=== PATIENT | male | born 1930 | race Caucasian/White ===

== ENCOUNTER 2017-06-24 12:54 | Inpatient (IN) | payer OTHER ==
[~2017-06-24] VITALS: Ht 167.6 cm; Wt 77.7 kg
[~2017-06-24 12:54] MED LIST: ASPEC81 PO; ATEN50TA8 PO; CRD4 PO; MULT-506 PO
[2017-06-24] MEDS ORDERED: SODIUM CHLORIDE 0.9% 1000ML 1,000 ML IV ONE (13:21)
--- NOTE | 2017-06-24 13:24 | EMERGENCY ROOM VISIT NOTE ---
History Report prepared by Ani: Med Sandhu Under the Supervision of: Dr. Eleno Rocha D.O. First contact with patient: 13:01 Chief Complaint: BILATERAL LEG WEAKNESS Stated Complaint: WEAKNESS History of Present Illness The patient is an 86 year old male with a history of hypertension who presents to the Emergency Room via EMS with complaints of worsening leg weakness that started upon waking this morning. He states that he has been coughing for a couple days, and has been hoarse, but when he was getting out of bed this morning, he noticed that his legs are very weak. He notes that his legs have gotten increasingly weaker throughout the day. He notes that he cannot even walk with his cane, which is new. The patient adds that he can lift both his legs off of the bed currently, but he has pain in both his thighs when he does. However, the pain in his thighs is not new. The patient notes that he has had a bit of a fever today. He states that he started having back pain last week. He says that he has not felt like passing out. He denies any chest pain, shortness of breath, nausea, vomiting, or urinary symptoms. He notes that he took his hypertension medication today. He states this his blood pressure usually runs around 160 systolic. He says that he has not been around any known sick contacts recently. He states that he has not been started on any new medications recently. Source of History: patient, spouse/significant other Onset: Upon waking this morning Position: leg (bilateral) Symptom Intensity: cannot even walk with cane Quality: other (weakness) Timing: worsening Associated Symptoms: + fevers, + cough, No chest pain, No SOB, No nausea, No vomiting, No urinary symptoms Review of Systems See HPI for pertinent positives & negatives. A total of 10 systems reviewed and were otherwise negative. Past Medical & Surgical Medical Problems: (1) HTN (hypertension) (2) Hyperlipemia (3) Hypothyroidism (4) Low blood pressure (5) SVT (supraventricular tachycardia) Family History Hypertension Social History Alcohol Use: none Marital Status: Housing Status: lives with family Occupation Status: employed Current/Historical Medications Scheduled Fluticasone Propionate (Nasal) (Flonase Allergy Relief), 2 SPRAYS ANNE-MARIE DAILY Lisinopril (Zestril), 10 MG PO DAILY Multivitamin (Multivitamin), 1 TAB PO DAILY Allergies Coded Allergies: Sulfa Drugs (Verified Allergy, Unknown, 06/24/17) Physical Exam Vital Signs Date Time Temp Pulse Resp B/P (MAP) Pulse Ox O2 Delivery O2 Flow Rate FiO2 06/24/17 16:48 82 16 102/60 94 Room Air 06/24/17 16:34 77 16 98/56 98 06/24/17 15:51 76 06/24/17 15:50 166 06/24/17 15:13 38.1 79 20 136/80 Room Air 06/24/17 14:17 Room Air 06/24/17 14:12 99 96/74 116 99/86 129/94 06/24/17 13:17 99 06/24/17 13:00 37.9 95 18 93/73 95 Room Air Physical Exam GENERAL: Patient is awake, alert, and in no acute distress. Patient is resting comfortably and showing no signs of anxiety EYES: The conjunctivae are clear. The pupils are round and reactive. EARS, NOSE, MOUTH AND THROAT: The nose is without any evidence of any deformity. Mucous membranes are moist tongue is midline NECK: The neck is nontender and supple. RESPIRATORY: Lung sounds were diminished throughout with scattered rhonchi. No tachypnea or conversational dyspnea noted. CARDIOVASCULAR: Regular rate and rhythm noted there no murmurs rubs or gallops normal S1 normal S2 GASTROINTESTINAL: The abdomen is soft. Bowel sounds are present in all quadrants. Abdomen is nontender PELVIS: The Pelvis is stable. No tenderness to palpation is noted. BACK: No midline tenderness or or step-off noted range of motion in flexion extension as well as rotation no signs of muscle spasm noted MUSCULOSKELETAL/EXTREMITIES: There is no evidence of gross deformity full range of motion is noted in the hips and shoulders SKIN: There is trace pedal edema bilaterally. NEUROLOGIC: Patient is awake alert and oriented x3, strength is symmetric. There was no facial droop and patient was able to hold each leg off the bed for greater than 5 seconds. Medical Decision & Procedures ER Provider Diagnostic Interpretation: Radiology results as stated below per my review and radiologist interpretation: CHEST ONE VIEW PORTABLE CLINICAL HISTORY: Sepsis dyspnea COMPARISON STUDY: No previous studies for comparison. FINDINGS: The bones soft tissues and hemidiaphragms are normal. The cardiomediastinal silhouette is normal. The lungs are clear. The pulmonary vasculature is normal. IMPRESSION: Negative chest. The above report was generated using voice recognition software. It may contain grammatical, syntax or spelling errors. Electronically signed by: Nima Pool M.D. 06/24/2017 2:23 PM Dictated Date/Time: 06/24/2017 2:22 PM HEAD WITHOUT CONTRAST (CT) CT DOSE: 614.27 mGy.cm HISTORY: Mental status change weakness TECHNIQUE: Multiaxial CT images of the head were performed without the use of intravenous contrast. A dose lowering technique was utilized adhering to the principles of ALARA. Comparison: 10/21/2010 Findings: The paranasal sinuses and mastoid air cells are clear. Somewhat progressive chronic small vessel change in the periventricular deep white matter regions. No well-defined acute infiltrate. No evidence for acute intracranial hemorrhage. Ventricular system is midline. Impression: 1. No acute intracranial abnormality. 2. Mildly progressive chronic small vessel change compared to the prior study within the periventricular and deep white matter regions. The above report was generated using voice recognition software. It may contain grammatical, syntax or spelling errors. Electronically signed by: Nima Pool M.D. 06/24/2017 3:11 PM Dictated Date/Time: 06/24/2017 3:10 PM Laboratory Results Test 06/24/17 13:43 06/24/17 13:54 06/24/17 14:00 06/24/17 15:20 Immature Granulocyte % (Auto) 0.1 % White Blood Count 7.79 K/uL (4.8-10.8) Red Blood Count 4.52 M/uL (4.7-6.1) Hemoglobin 15.3 g/dL (14.0-18.0) Hematocrit 40.7 % (42-52) Mean Corpuscular Volume 90.0 fL (80-100) Mean Corpuscular Hemoglobin 33.8 pg (25-34) Mean Corpuscular Hemoglobin Concent 37.6 g/dl (32-36) Platelet Count 172 K/uL (130-400) Mean Platelet Volume 9.2 fL (7.4-10.4) Neutrophils (%) (Auto) 79.2 % Lymphocytes (%) (Auto) 10.8 % Monocytes (%) (Auto) 8.6 % Eosinophils (%) (Auto) 0.9 % Basophils (%) (Auto) 0.4 % Neutrophils # (Auto) 6.17 K/uL (1.4-6.5) Lymphocytes # (Auto) 0.84 K/uL (1.2-3.4) Monocytes # (Auto) 0.67 K/uL (0.11-0.59) Eosinophils # (Auto) 0.07 K/uL (0-0.5) Basophils # (Auto) 0.03 K/uL (0-0.2) Immature Granulocyte # (Auto) 0.01 K/uL (0.00-0.02) Erythrocyte Sedimentation Rate 16 mm/hr (0-14) Prothrombin Time 11.5 SECONDS (9.0-12.0) Prothromb Time International Ratio 1.1 (0.9-1.1) Activated Partial Thromboplast Time 28.6 SECONDS (21.0-31.0) Partial Thromboplastin Ratio 1.1 Phosphorus Level 2.6 mg/dl (2.5-4.9) Magnesium Level 1.9 mg/dl (1.8-2.4) Total Bilirubin 0.9 mg/dl (0.2-1) Aspartate Amino Transf (AST/SGOT) 19 U/L (15-37) Alanine Aminotransferase (ALT/SGPT) 29 U/L (12-78) Alkaline Phosphatase 75 U/L (45-117) Total Creatine Kinase 130 U/L (39-308) Creatine Kinase MB 2.3 ng/ml (0.5-3.6) Creatine Kinase MB Ratio 1.8 (0-3.0) C-Reactive Protein 2.84 mg/dl (0-0.29) Total Protein 8.2 gm/dl (6.4-8.2) Albumin 3.8 gm/dl (3.4-5.0) Globulin 4.4 gm/dl (2.5-4.0) Albumin/Globulin Ratio 0.9 (0.9-2) Lipase 111 U/L (73-393) Procalcitonin 0.10 ng/ml (0-0.5) Thyroid Stimulating Hormone (TSH) 2.480 uIu/ml (0.300-4.500) Bedside Lactic Acid Venous 1.68 mmol/L (0.90-1.70) Influenza Type A (RT-PCR) Neg for Influ A (NEG) Influenza Type B (RT-PCR) Neg for Influ B (NEG) Urine Color YELLOW Urine Appearance CLEAR (CLEAR) Urine pH 7.0 (4.5-7.5) Urine Specific [place] 1.018 (1.000-1.030) Urine Protein NEG (NEG) Urine Glucose (UA) NEG (NEG) Urine Ketones NEG (NEG) Urine Occult Blood NEG (NEG) Urine Nitrite NEG (NEG) Urine Bilirubin NEG (NEG) Urine Urobilinogen NEG (NEG) Urine Leukocyte Esterase NEG (NEG) Urine WBC (Auto) 1-5 /hpf (0-5) Urine RBC (Auto) 0-4 /hpf (0-4) Urine Hyaline Casts (Auto) 1-5 /lpf (0-5) Urine Epithelial Cells (Auto) 5-10 /lpf (0-5) Urine Bacteria (Auto) NEG (NEG) Laboratory results per my review. Medications Administered Medications (Trade) Dose Ordered Sig/Cris Route Start Time Stop Time Status Last Admin Dose Admin Sodium Chloride 1,000 ml @ 999 mls/hr Q1H1M ONCE IV 06/24/17 13:21 06/24/17 14:21 DC 06/24/17 14:18 999 MLS/HR Sodium Chloride 1,000 ml @ 80 mls/hr [id number] IV 06/24/17 17:22 06/25/17 05:51 DC 06/24/17 20:05 80 MLS/HR ECG Per My Interpretation Indication: weakness Rate (beats per minute): 95 Rhythm: normal sinus Findings: no ectopy, other (no acute ST segment abnormalities) Change: no significant change (compared to 06/08/07) ED Course 1318: The patient was evaluated in room B6. A complete history and physical examination were performed. 1321: NSS 1000 ml @ 999 mls/hr IV. 1611: I discussed the patient with Dr. Manjinder Augustin cardiology. 1710: Upon reevaluation, the patient is resting. I discussed results and treatment plan with him. He verbalizes agreement and understanding. The patient will be evaluated for further management and care. 1719: I discussed the patient with Dr. Kj Augustin credit clerk. She will evaluate the patient for further treatment. Medical Decision Differential diagnosis: Etiologies such as viral syndrome, otitis, pharyngitis, pneumonia, influenza, meningitis, urinary tract infection, sepsis, bacteremia, as well as others were entertained. Nursing notes reviewed. Additional history is obtained from patient's significant other. The patient is an 86-year-old male who presented to the emergency department for generalized weakness. The patient has had episodes of hypotension recently has been seen by his family doctor for this. They have been trying to adjust his medications but he currently does take some blood pressure medication. The patient also had a low-grade fever. I discussed patient's laboratory and radiographic studies with him. He had one episode of supraventricular tachycardia. I discussed patient's case with the [facility] orthopedic specialist. Because of his ongoing symptoms I was concerned this could be a medication issue. For this reason I discussed this case with the on-call [facility] hospitalist. They have agreed to evaluate the patient in the emergency department for further management and disposition. Medication Reconcilliation Current Medication List: was personally reviewed by me Blood Pressure Screening Patient's blood pressure: Low blood pressure Referred to hospitalist. Consults Time Called: 1608 Consulting Physician: Dr. Manjinder Augustin cardiology Returned Call: 1611 I discussed the patient with Dr. Manjinder Augustin cardiology. Additional Consults: Time Called: 1710 Consulted Physician: Dr. Kj Augustin credit clerk Returned Call: 1719 Additional Comments: I discussed the patient with Dr. Kj Augustin credit clerk. She will evaluate the patient for further treatment. Impression Primary Impression: Weakness Additional Impressions: Hypotension SVT (supraventricular tachycardia) Fever Scribe Attestation The scribe's documentation has been prepared under my direction and personally reviewed by me in its entirety. I confirm that the note above accurately reflects all work, treatment, procedures, and medical decision making performed by me. Departure Information Dispostion Being Evaluated By Hospitalist Referrals No Doctor, Assigned (PCP) Patient Instructions My [facility] Problem Qualifiers Additional Impressions: Hypotension Hypotension type: unspecified hypotension type Qualified Codes: I95.9 - Hypotension, unspecified Fever Fever type: unspecified Qualified Codes: R50.9 - Fever, unspecified
[2017-06-24] MEDS ORDERED: LISI-461 PO (13:37)
[2017-06-24 14:05] LABS: BASO % 0.4 %; BASO ABS # 0.03 K/uL (0-0.2); EOS % 0.9 %; EOS ABS # 0.07 K/uL (0-0.5); HEMATOCRIT 40.7 % (42-52); HEMOGLOBIN 15.3 g/dL (14.0-18.0); IG# 0.01 K/uL (0.00-0.02); LYMPH % 10.8 %; LYMPH ABS # 0.84 K/uL (1.2-3.4); MEAN CORPUSCULAR HEMOGLOBIN 33.8 pg (25-34); MEAN CORPUSCULAR HGB CONC 37.6 g/dl (32-36); MEAN PLATELET VOLUME 9.2 fL (7.4-10.4); MONO % 8.6 %; MONO ABS # 0.67 K/uL (0.11-0.59); NEUT % 79.2 %; NEUT ABS # 6.17 K/uL (1.4-6.5); PLATELET COUNT 172 K/uL (130-400); RED CELL DISTRIBUTION WIDTH CV 13.7 % (11.5-14.5); RED CELL DISTRIBUTION WIDTH SD 44.3 fL (36.4-46.3); WHITE BLOOD COUNT 7.79 K/uL (4.8-10.8)
[2017-06-24 14:11] LABS: INR 1.1 (0.9-1.1); PTT PATIENT 28.6 SECONDS (21.0-31.0)
[2017-06-24 14:20] LABS: ALBUMIN 3.8 gm/dl (3.4-5.0); ALT/SGPT 29 U/L (12-78); AST/SGOT 19 U/L (15-37); BLOOD UREA NITROGEN 23 mg/dl (7-18); CARBON DIOXIDE 25 mmol/L (21-32); CREATININE 1.31 mg/dl (0.60-1.40); GLUCOSE 110 mg/dl (70-99); LIPASE 111 U/L (73-393); POTASSIUM 4.5 mmol/L (3.5-5.1); SODIUM 133 mmol/L (136-145)
[2017-06-24 14:23] LABS: ALKALINE PHOSPHATASE 75 U/L (45-117); CKMB 2.3 ng/ml (0.5-3.6); PHOSPHORUS 2.6 mg/dl (2.5-4.9); TOTAL PROTEIN 8.2 gm/dl (6.4-8.2)
--- NOTE | 2017-06-24 14:24 | DIAGNOSTIC IMAGING REPORT ---
CHEST ONE VIEW PORTABLE CLINICAL HISTORY: Sepsis dyspnea COMPARISON STUDY: No previous studies for comparison. FINDINGS: The bones soft tissues and hemidiaphragms are normal. The cardiomediastinal silhouette is normal. The lungs are clear. The pulmonary vasculature is normal. IMPRESSION: Negative chest. The above report was generated using voice recognition software. It may contain grammatical, syntax or spelling errors. Electronically signed by: Nima Pool M.D. 06/24/2017 2:23 PM Dictated Date/Time: 06/24/2017 2:22 PM
[2017-06-24 15:08] LABS: INFLUENZA A PCR Neg for Influ A (NEG); INFLUENZA B PCR Neg for Influ B (NEG)
--- NOTE | 2017-06-24 15:13 | DIAGNOSTIC IMAGING REPORT ---
HEAD WITHOUT CONTRAST (CT) CT DOSE: 614.27 mGy.cm HISTORY: Mental status change weakness TECHNIQUE: Multiaxial CT images of the head were performed without the use of intravenous contrast. A dose lowering technique was utilized adhering to the principles of ALARA. Comparison: 10/21/2010 Findings: The paranasal sinuses and mastoid air cells are clear. Somewhat progressive chronic small vessel change in the periventricular deep white matter regions. No well-defined acute infiltrate. No evidence for acute intracranial hemorrhage. Ventricular system is midline. Impression: 1. No acute intracranial abnormality. 2. Mildly progressive chronic small vessel change compared to the prior study within the periventricular and deep white matter regions. The above report was generated using voice recognition software. It may contain grammatical, syntax or spelling errors. Electronically signed by: Nima Pool M.D. 06/24/2017 3:11 PM Dictated Date/Time: 06/24/2017 3:10 PM
[2017-06-24] MEDS ORDERED: SODIUM CHLORIDE 0.9% 1000ML 1,000 ML IV SCH (17:22)
[2017-06-24] MEDS ORDERED: NITROGLYCERIN 0.4 MG SL PER TAB CHARGE SL PRN (17:30)
[2017-06-24] MEDS ORDERED: ALUMINUM/MAGNESIUM/SIMETH (MAALOX MAX) 30 ML UDC PO PRN (17:30)
[2017-06-24] MEDS ORDERED: ACETAMINOPHEN 325 MG TAB PO PRN (17:30)
[2017-06-24] MEDS ORDERED: ONDANSETRON INJ 2 MG/ML 2 ML VIAL IV PRN (17:30)
[2017-06-24] MEDS ORDERED: MAGNESIUM HYDROXIDE SUSP 30 ML UDC PO PRN (17:30)
[2017-06-24] MEDS ORDERED: POLYETHYLENE (MIRALAX) 17 GM PACK PO PRN (17:30)
[2017-06-24] MEDS ORDERED: FLUT0.15 NAE (18:34)
[2017-06-24] MEDS ORDERED: IV FLUIDS COMPLETED PRN (20:00)
[2017-06-24] MEDS: HEPARIN SOD 5000 UNIT/0.5 ML CARP SQ SCH (20:07)
[2017-06-24] MEDS ORDERED: OPTIRAY 320 IV PRN (20:15)
--- NOTE | 2017-06-24 20:15 | History and Physical ---
History & Physical Date & Time of Service: June 24, 2017 at 18:42 Chief Complaint: Weakness Primary Care Physician: Omaira Iglesias M.D. History of Present Illness Source: patient, spouse, clinic records, hospital records Pt is 86 y/o M with PMH hypothyroidism, HTN, HLD, OA presented to ER with c/o weakness. Patient states yesterday started with some mild body aches which were increased today. Past 2 days with cough productive of barnard/yellow sputum. Denies SOB/CP. Today has not been eating or drinking well. Reports history of chronic nasal congestion and uses Flonase however feels has had increased postnasal drip past 2 days. Today tactile fevers. Today with generalized weakness and bilateral extremity weakness and unable to stand or walk. Usually walks with the assistance of a cane. 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 His reports that normally has low BPs at home however last PCP visit had elevated blood pressure lisinopril was added 10 days ago. History chronic constipation and uses MiraLAX daily to have daily BMs. Patient states 04/2016 slipped on ice and fell and since that time with intermittent headaches and posterior neck pain. Denies any other recurrent falls. patient denies any dizziness or lightheadedness or syncopal episodes. Denies ill contacts. Denies recent travel, tick bites. Denies N/V, vision changes, CP, SOB, orthopnea, palpitations, sore throat, choking, otalgia, abdominal pain, paresthesias, extremity edema, rashes, urinary symptoms, weight loss. Past Medical/Surgical History Medical Problems: (1) HTN (hypertension) (2) Low blood pressure (3) SVT (supraventricular tachycardia) Family History Hypertension Social History Smoking Status: Former Smoker Smokeless Tobacco Use: No Alcohol Use: none Drug Use: none Marital Status: Housing status: lives with significant other Occupational Status: employed Immunizations History of Influenza Vaccine: Yes History of Tetanus Vaccine?: Unknown History of Pneumococcal: Yes History of Hepatitis B Vaccine: No Allergies Coded Allergies: Sulfa Drugs (Verified Allergy, Unknown, 06/24/17) Home Medications Scheduled Fluticasone Propionate (Nasal) (Flonase Allergy Relief), 2 SPRAYS ANNE-MARIE DAILY Lisinopril (Zestril), 10 MG PO DAILY Multivitamin (Multivitamin), 1 TAB PO DAILY Review of Systems See HPI for pertinent positives & negatives. All other systems reviewed and were otherwise negative Physical Exam Vital Signs Date Time Temp Pulse Resp B/P (MAP) Pulse Ox O2 Delivery O2 Flow Rate FiO2 06/24/17 16:48 82 16 102/60 94 Room Air 06/24/17 16:34 77 16 98/56 98 06/24/17 15:51 76 06/24/17 15:50 166 06/24/17 15:13 38.1 79 20 136/80 Room Air 06/24/17 14:17 Room Air 06/24/17 14:12 99 96/74 116 99/86 129/94 06/24/17 13:17 99 06/24/17 13:00 37.9 95 18 93/73 95 Room Air General Appearance: WD/WN, no apparent distress Head: normocephalic, atraumatic Eyes: normal inspection, PERRL, EOMI, sclerae normal ENT: hearing grossly normal, pharynx normal, + pertinent finding (mucous membranes mildly dry) Neck: supple, no JVD, trachea midline, + pertinent finding (non-tender to palpation ) Respiratory/Chest: lungs clear, normal breath sounds, no respiratory distress Cardiovascular: regular rate, rhythm, normal peripheral pulses Abdomen/GI: normal bowel sounds, non tender, soft Back: no CVA tenderness Extremities/Musculoskelatal: normal inspection, no calf tenderness, normal capillary refill, no pedal edema, non-tender, + pertinent finding (Pt able to flex/extend bilateral hips, knees, ankles without tenderness. distal pulses intact bilaterally, +sensation to light touch intact bilaterally) Neurologic/Psych: alert, normal mood/affect, oriented x 3 Skin: normal color, warm/dry Diagnostics Laboratory Results Results Past 24 Hours Test 06/24/17 13:43 06/24/17 13:54 06/24/17 14:00 06/24/17 15:20 Range/Units White Blood Count 7.79 4.8-10.8 K/uL Red Blood Count 4.52 4.7-6.1 M/uL Hemoglobin 15.3 14.0-18.0 g/dL Hematocrit 40.7 42-52 % Mean Corpuscular Volume 90.0 80-100 fL Mean Corpuscular Hemoglobin 33.8 25-34 pg Mean Corpuscular Hemoglobin Concent 37.6 32-36 g/dl Platelet Count 172 130-400 K/uL Mean Platelet Volume 9.2 7.4-10.4 fL Neutrophils (%) (Auto) 79.2 % Lymphocytes (%) (Auto) 10.8 % Monocytes (%) (Auto) 8.6 % Eosinophils (%) (Auto) 0.9 % Basophils (%) (Auto) 0.4 % Neutrophils # (Auto) 6.17 1.4-6.5 K/uL Lymphocytes # (Auto) 0.84 1.2-3.4 K/uL Monocytes # (Auto) 0.67 0.11-0.59 K/uL Eosinophils # (Auto) 0.07 0-0.5 K/uL Basophils # (Auto) 0.03 0-0.2 K/uL RDW Standard Deviation 44.3 36.4-46.3 fL RDW Coefficient of Variation 13.7 11.5-14.5 % Immature Granulocyte % (Auto) 0.1 % Immature Granulocyte # (Auto) 0.01 0.00-0.02 K/uL Erythrocyte Sedimentation Rate 16 0-14 mm/hr Prothrombin Time 11.5 9.0-12.0 SECONDS Prothromb Time International Ratio 1.1 0.9-1.1 Activated Partial Thromboplast Time 28.6 21.0-31.0 SECONDS Partial Thromboplastin Ratio 1.1 Sodium Level 133 136-145 mmol/L Potassium Level 4.5 3.5-5.1 mmol/L Chloride Level 103 98-107 mmol/L Carbon Dioxide Level 25 21-32 mmol/L Anion Gap 5.0 3-11 mmol/L Blood Urea Nitrogen 23 7-18 mg/dl Creatinine 1.31 0.60-1.40 mg/dl Est Creatinine Clear Calc Drug Dose 41.0 ml/min Estimated GFR () 57.1 Estimated GFR (Non- 49.3 BUN/Creatinine Ratio 17.7 10-20 Random Glucose 110 70-99 mg/dl Calcium Level 9.0 8.5-10.1 mg/dl Phosphorus Level 2.6 2.5-4.9 mg/dl Magnesium Level 1.9 1.8-2.4 mg/dl Total Bilirubin 0.9 0.2-1 mg/dl Aspartate Amino Transf (AST/SGOT) 19 15-37 U/L Alanine Aminotransferase (ALT/SGPT) 29 12-78 U/L Alkaline Phosphatase 75 45-117 U/L Total Creatine Kinase 130 39-308 U/L Creatine Kinase MB 2.3 0.5-3.6 ng/ml Creatine Kinase MB Ratio 1.8 0-3.0 Troponin I < 0.015 0-0.045 ng/ml C-Reactive Protein 2.84 0-0.29 mg/dl Total Protein 8.2 6.4-8.2 gm/dl Albumin 3.8 3.4-5.0 gm/dl Globulin 4.4 2.5-4.0 gm/dl Albumin/Globulin Ratio 0.9 0.9-2 Lipase 111 73-393 U/L Procalcitonin 0.10 0-0.5 ng/ml Bedside Lactic Acid Venous 1.68 0.90-1.70 mmol/L Influenza Type A (RT-PCR) Neg for Influ A NEG Influenza Type B (RT-PCR) Neg for Influ B NEG Urine Color YELLOW Urine Appearance CLEAR CLEAR Urine pH 7.0 4.5-7.5 Urine Specific [place] 1.018 1.000-1.030 Urine Protein NEG NEG Urine Glucose (UA) NEG NEG Urine Ketones NEG NEG Urine Occult Blood NEG NEG Urine Nitrite NEG NEG Urine Bilirubin NEG NEG Urine Urobilinogen NEG NEG Urine Leukocyte Esterase NEG NEG Urine WBC (Auto) 1-5 0-5 /hpf Urine RBC (Auto) 0-4 0-4 /hpf Urine Hyaline Casts (Auto) 1-5 0-5 /lpf Urine Epithelial Cells (Auto) 5-10 0-5 /lpf Urine Bacteria (Auto) NEG NEG Test 06/24/17 18:26 Range/Units Microbiology Results 06/24/17 Blood Culture, Received Pending 06/24/17 Blood Culture, Received Pending Diagnostic Radiology CXR: IMPRESSION: Negative chest. CT HEAD: Impression: 1. No acute intracranial abnormality. EKG EKG read by cardiology Normal sinus rhythm Left axis deviation Inferior infarct , age undetermined Abnormal ECG When compared with ECG of 08-JUN-2007 15:19, Vent. rate has increased BY 35 BPM Inferior infarct is now Present Confirmed by Tony Al ([id number]) on 06/24/2017 2:43:58 PM Impression Assessment and Plan FEVER/COUGH Yesterday started with generalized weakness, myalgias, today with tactile fevers , cough 2 days productive yellow/barnard sputum. Denies SOB/CP. In ER temp of 38.1C, P: 95, R: 18, BP 93/73 up to 136/80. 95% on room air. Negative influenza PCR. No leukocytosis, no leukocytosis, negative UA, POC lactic acid WNL, procalcitonin WNL. ESR: 16, CRP:2.8. Negative troponin. CXR: Negative. In ER patient given 1 mL NSS. DDX: viral respiratory infection -Sputum culture -Pending blood cultures -IVF -CBC, PRP in am -CT chest -holding on antibiotics at this time until result of CT chest EPISODE SVT Pt had episode SVT in ER with pulse up to 166 and pt was febrile at 38.1C at that time. Pt given IVF, no other meds and pulse down to 80's D-dimer: 710. Initial troponin negative -monitor on tele -trend troponin ELEVATED D-DIMER D-dimer: 710 CTA ordered to r/o PE HYPOTENSION/DEHYDRATION BP: 93/73 up to 136/80 after IVF in ER -holding pt's lisinopril GENERALIZED WEAKNESS Generalized weakness, unable to stand or walk today 2/2 increased LE weakness. Probable secondary to above and dehydration -Continue to monitor, fall precautions -holding lisinopril at this time secondary to hypotension/dehydration ACUTE KIDNEY INJURY Cr: 1.3. Baseline 1.0. Probable secondary to dehydration -IVF -Monitor renal functions -Holding lisinopril -Avoid nephrotoxic agents and possible GAIT ABNORMALITY Patient reports history of "shuffled gait" since 1999 when he had bilateral knee replacement. Patient reports had neurology workup in 2008 and did not f/u after that. Usually ambulates with cane. Today unable to stand/walk CT head in ER no acute intracranial abnormality. -PT/OT eval -Neuro consult Reported HTN Pt was placed on lisinopril 10 days ago for elevated BP in PCP's office -holding lisinopril 2/2 hypotension/renal insufficiency HYPOTHYROIDISM Pt not currently on thyroid med TSH Pending DVT Prophylaxis -heparin SQ Disposition admit tele Full Code as per discussion with pt Follows with Dr Iglesias for routine care Pt was seen with Dr Underwood. See addendum ATTENDING ADDENDUM : Patient seen and examined care coordinated with Kalpana Pepe PA-C 86-year-old male with multiple comorbidities presented to ER with weakness fatigue history of multiple falls/generalized deconditioning/ In the ER patient was found to be in SVT CT chest with contrast was negative for any acute PE Given IV fluid for hypotension/dehydration PT OT evaluation requested Please refer to further documentation by Kalpana Pepe PA-C for discussion of other chronic issue Pallavi Underwood MD Resuscitation Status Full Code VTE Prophylaxis Will order VTE Prophylaxis: Yes Additional Copies To Omaira Iglesias M.D.
[2017-06-24 20:29] VITALS: BP 129/74; PULSE 85; TEMP 36.8; O2SAT 95; Ht 167.6 cm; Wt 77.7 kg
--- NOTE | 2017-06-24 20:50 | DIAGNOSTIC IMAGING REPORT ---
CT ANGIOGRAM OF THE CHEST CLINICAL HISTORY: Shortness of breath. Elevated d-dimer. COMPARISON STUDY: Chest x-ray dated 06/24/2017 TECHNIQUE: Following the IV administration of 97 mL of Optiray-320, CT angiogram of the thorax was performed from the thoracic inlet to the lung bases utilizing the pulmonary embolus protocol. Images are reviewed in the axial, sagittal, and coronal planes. IV contrast was administered without complication. MIP imaging was performed. A dose lowering technique was utilized adhering to the principles of ALARA. CT DOSE: 417.39 mGy.cm FINDINGS: No pathologically enlarged axillary mediastinal or hilar lymph nodes were visualized. There is aneurysmal dilatation of the ascending thoracic aorta which measures 47 mm in diameter at the level of the main pulmonary artery There were no pulmonary artery filling defects to indicate acute pulmonary embolism. No pleural effusions are visualized. There was no evidence of focal pulmonary consolidation. There is a 3 mm solid right upper lobe pulmonary nodule. IMPRESSION: 1. No evidence of acute pulmonary embolism 2. No evidence of focal pulmonary consolidation 3. 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 06/24/2017 8:49 PM Dictated Date/Time: 06/24/2017 8:45 PM
--- NOTE | 2017-06-24 21:24 | DIAGNOSTIC IMAGING REPORT ---
ULTRASOUND VENOUS DOPPLER LWR EXT BILA CLINICAL HISTORY: Shortness of breath. Elevated d-dimer COMPARISON STUDY: No previous studies for comparison. FINDINGS: Real-time and color flow Doppler imaging were performed. Flow was seen within the femoral, popliteal and calf veins with no intraluminal thrombus demonstrated. The saphenous vein is patent. IMPRESSION: No evidence of lower extremity DVT. Electronically signed by: Oskar Perkins M.D. 06/24/2017 9:22 PM Dictated Date/Time: 06/24/2017 9:22 PM
[2017-06-25] VITALS: BP 117/71; PULSE 72; TEMP 37.2; O2SAT 95
[2017-06-25 02:42] VITALS: BP 119/65; PULSE 68; TEMP 36.8; O2SAT 94
[2017-06-25 05:28] LABS: HEMATOCRIT 36.4 % (42-52); HEMOGLOBIN 13.2 g/dL (14.0-18.0); MEAN CORPUSCULAR HEMOGLOBIN 32.3 pg (25-34); MEAN CORPUSCULAR HGB CONC 36.3 g/dl (32-36); PLATELET COUNT 148 K/uL (130-400); RED CELL DISTRIBUTION WIDTH CV 13.6 % (11.5-14.5); RED CELL DISTRIBUTION WIDTH SD 44.7 fL (36.4-46.3); WHITE BLOOD COUNT 6.88 K/uL (4.8-10.8)
[2017-06-25 05:54] LABS: BLOOD UREA NITROGEN 22 mg/dl (7-18); CALCIUM 8.3 mg/dl (8.5-10.1); CARBON DIOXIDE 26 mmol/L (21-32); CHOLESTEROL 157 mg/dl (0-200); CREATININE 1.04 mg/dl (0.60-1.40); GLUCOSE 103 mg/dl (70-99); POTASSIUM 4.2 mmol/L (3.5-5.1); SODIUM 137 mmol/L (136-145)
[2017-06-25 05:57] LABS: LDL CHOLESTEROL CALCULATED 101 mg/dl
[2017-06-25] MEDS: HEPARIN SOD 5000 UNIT/0.5 ML CARP SQ SCH ×3 (06:15→21:13)
[2017-06-25 07:51] VITALS: BP 115/70; PULSE 82; TEMP 37; O2SAT 94
[2017-06-25] MEDS: ASPIRIN 81 MG ECTAB PO SCH (07:55)
[2017-06-25] MEDS: MULTIVITAMIN TAB PO SCH (07:55)
[2017-06-25 11:43] VITALS: BP 141/78; PULSE 72; TEMP 36.9; O2SAT 97
[2017-06-25] MEDS ORDERED: SODIUM CHLORIDE 0.9% 1000ML 1,000 ML IV SCH (13:15)
--- NOTE | 2017-06-25 13:56 | Progress Note ---
Subjective Date of Service: June 25, 2017. Subjective Pt evaluation today including: conversation w/ patient, physical exam, lab review, review of studies, review of inpatient medication list Saw/examined the patient in room 206 He's laying comfortably in no distress States he has difficulty walking, ambulation issues mild persistent cough, but otherwise, no upper respiratory symptoms at this time Problem List Medical Problems: (1) Fever Status: Acute (2) Hypotension Status: Acute (3) Weakness Status: Acute Review of Systems Constitutional: + weakness, No fever, No chills Respiratory: + cough, No sputum, No wheezing, No shortness of breath, No dyspnea on exertion Cardiac: No chest pain Neurologic: + weakness, + numbness/tingling, + balance problems Medications Current Inpatient Medications Medications (Trade) Dose Ordered Sig/Cris Route Start Time Stop Time Status Last Admin Dose Admin Heparin Sodium (Porcine) (Heparin Sq 5000 Unit/0.5ml) 5,000 unit Q8 SQ 06/24/17 22:00 07/24/17 21:59 06/25/17 06:15 5,000 UNIT Acetaminophen (Tylenol Tab) 650 mg Q4H PRN PO 06/24/17 17:30 07/24/17 17:29 Al Hydrox/Mg Hydrox/Simethicone (Maalox Max Susp) 15 ml Q4H PRN PO 06/24/17 17:30 07/24/17 17:29 Magnesium Hydroxide (Milk Of Magnesia Susp) 30 ml Q12H PRN PO 06/24/17 17:30 07/24/17 17:29 Ondansetron HCl (Zofran Inj) 4 mg Q6H PRN IV 06/24/17 17:30 07/24/17 17:29 Nitroglycerin (Nitrostat Tab) 0.4 mg UD PRN SL 06/24/17 17:30 07/24/17 17:29 Aspirin (Ecotrin Tab) 81 mg QAM PO 06/25/17 09:00 07/25/17 08:59 06/25/17 07:55 81 MG Polyethylene (Miralax Powder Packet) 17 gm DAILY PRN PO 06/24/17 17:30 07/24/17 17:29 Multivitamins (Multivitamin Tab) 1 tab DAILY PO 06/25/17 09:00 07/25/17 08:59 06/25/17 07:55 1 TAB Miscellaneous (Iv Fluids Completed) 1 ea PRN PRN N/A 06/24/17 20:00 06/24/18 19:59 Ioversol (Optiray 320) 125 ml UD PRN IV 06/24/17 20:15 06/28/17 20:14 Sodium Chloride 1,000 ml @ 75 mls/hr [id number] IV 06/25/17 13:15 06/25/17 19:14 Objective Vital Signs Date Time Temp Pulse Resp B/P (MAP) Pulse Ox O2 Delivery O2 Flow Rate FiO2 06/25/17 12:00 Room Air 06/25/17 11:43 36.9 72 20 141/78 (99) 97 Room Air 06/25/17 08:00 Room Air 06/25/17 07:51 37.0 82 16 115/70 (85) 94 Room Air 06/25/17 04:00 Room Air 06/25/17 02:42 36.8 68 18 119/65 (83) 94 Room Air 06/25/17 00:00 37.2 72 16 117/71 (86) 95 Room Air 06/24/17 23:59 Room Air 06/24/17 20:29 36.8 85 16 129/74 95 Room Air 06/24/17 20:00 Room Air 06/24/17 18:24 74 138/75 93 06/24/17 16:48 82 16 102/60 94 Room Air 06/24/17 16:34 77 16 98/56 98 06/24/17 15:51 76 06/24/17 15:50 166 06/24/17 15:13 38.1 79 20 136/80 Room Air 06/24/17 14:17 Room Air 06/24/17 14:12 99 96/74 116 99/86 129/94 Physical Exam General Appearance: no apparent distress Respiratory/Chest: lungs clear, normal breath sounds, no respiratory distress, no accessory muscle use Cardiovascular: regular rate, rhythm, no edema, no murmur Extremities: normal inspection, no pedal edema Neurologic/Psychiatric: no motor/sensory deficits, alert, normal mood/affect Laboratory Results Last 24 Hours Test 06/24/17 13:43 06/24/17 13:54 06/24/17 14:00 06/24/17 15:20 White Blood Count 7.79 K/uL Red Blood Count 4.52 M/uL Hemoglobin 15.3 g/dL Hematocrit 40.7 % Mean Corpuscular Volume 90.0 fL Mean Corpuscular Hemoglobin 33.8 pg Mean Corpuscular Hemoglobin Concent 37.6 g/dl Platelet Count 172 K/uL Mean Platelet Volume 9.2 fL Neutrophils (%) (Auto) 79.2 % Lymphocytes (%) (Auto) 10.8 % Monocytes (%) (Auto) 8.6 % Eosinophils (%) (Auto) 0.9 % Basophils (%) (Auto) 0.4 % Neutrophils # (Auto) 6.17 K/uL Lymphocytes # (Auto) 0.84 K/uL Monocytes # (Auto) 0.67 K/uL Eosinophils # (Auto) 0.07 K/uL Basophils # (Auto) 0.03 K/uL RDW Standard Deviation 44.3 fL RDW Coefficient of Variation 13.7 % Immature Granulocyte % (Auto) 0.1 % Immature Granulocyte # (Auto) 0.01 K/uL Erythrocyte Sedimentation Rate 16 mm/hr Prothrombin Time 11.5 SECONDS Prothromb Time International Ratio 1.1 Activated Partial Thromboplast Time 28.6 SECONDS Partial Thromboplastin Ratio 1.1 Sodium Level 133 mmol/L Potassium Level 4.5 mmol/L Chloride Level 103 mmol/L Carbon Dioxide Level 25 mmol/L Anion Gap 5.0 mmol/L Blood Urea Nitrogen 23 mg/dl Creatinine 1.31 mg/dl Est Creatinine Clear Calc Drug Dose 41.0 ml/min Estimated GFR () 57.1 Estimated GFR (Non- 49.3 BUN/Creatinine Ratio 17.7 Random Glucose 110 mg/dl Calcium Level 9.0 mg/dl Phosphorus Level 2.6 mg/dl Magnesium Level 1.9 mg/dl Total Bilirubin 0.9 mg/dl Aspartate Amino Transf (AST/SGOT) 19 U/L Alanine Aminotransferase (ALT/SGPT) 29 U/L Alkaline Phosphatase 75 U/L Total Creatine Kinase 130 U/L Creatine Kinase MB 2.3 ng/ml Creatine Kinase MB Ratio 1.8 Troponin I < 0.015 ng/ml C-Reactive Protein 2.84 mg/dl Total Protein 8.2 gm/dl Albumin 3.8 gm/dl Globulin 4.4 gm/dl Albumin/Globulin Ratio 0.9 Lipase 111 U/L Procalcitonin 0.10 ng/ml Thyroid Stimulating Hormone (TSH) 2.480 uIu/ml Bedside Lactic Acid Venous 1.68 mmol/L Influenza Type A (RT-PCR) Neg for Influ A Influenza Type B (RT-PCR) Neg for Influ B Urine Color YELLOW Urine Appearance CLEAR Urine pH 7.0 Urine Specific [place] 1.018 Urine Protein NEG Urine Glucose (UA) NEG Urine Ketones NEG Urine Occult Blood NEG Urine Nitrite NEG Urine Bilirubin NEG Urine Urobilinogen NEG Urine Leukocyte Esterase NEG Urine WBC (Auto) 1-5 /hpf Urine RBC (Auto) 0-4 /hpf Urine Hyaline Casts (Auto) 1-5 /lpf Urine Epithelial Cells (Auto) 5-10 /lpf Urine Bacteria (Auto) NEG Test 06/24/17 18:26 06/24/17 23:08 06/25/17 05:12 06/25/17 11:44 D-Dimer 710 ug/L FEU Troponin I < 0.015 ng/ml < 0.015 ng/ml < 0.015 ng/ml White Blood Count 6.88 K/uL Red Blood Count 4.09 M/uL Hemoglobin 13.2 g/dL Hematocrit 36.4 % Mean Corpuscular Volume 89.0 fL Mean Corpuscular Hemoglobin 32.3 pg Mean Corpuscular Hemoglobin Concent 36.3 g/dl RDW Standard Deviation 44.7 fL RDW Coefficient of Variation 13.6 % Platelet Count 148 K/uL Mean Platelet Volume 9.0 fL Sodium Level 137 mmol/L Potassium Level 4.2 mmol/L Chloride Level 106 mmol/L Carbon Dioxide Level 26 mmol/L Anion Gap 5.0 mmol/L Blood Urea Nitrogen 22 mg/dl Creatinine 1.04 mg/dl Est Creatinine Clear Calc Drug Dose 51.7 ml/min Estimated GFR () 75.5 Estimated GFR (Non- 65.2 BUN/Creatinine Ratio 21.1 Random Glucose 103 mg/dl Calcium Level 8.3 mg/dl Triglycerides Level 70 mg/dl Cholesterol Level 157 mg/dl HDL Cholesterol 42 mg/dl LDL Cholesterol, Calculated 101 mg/dl VLDL Cholesterol, Calculated 14 mg/dl Cholesterol/HDL Ratio 3.7 Assessment and Plan This is an 86 year old male with a past medical history of gait abnormality, HTN , HLD, hypothyroidism, prediabetes - presents with ambulatory dysfunction, generalized weakness Ambulatory Dysfunction Generalized Weakness - patient states he's had trouble with ambulation for 18 years, since his knee surgeries - he's seen a few doctors including neurology in 2008. At that time, an MRI was done - showing microvascular changes and cerebral atrophy - so at this point, we'll add PT/OT to see how he does - consulted neurology in case we need another MRI or further testing Acute Kidney Injury - creatinine up to 1.3 on admission, with an elevated BUN:creat ratio - will give gentle IV hydration - monitor kidney function Episode of SVT - resolved HTN - will hold Lisinopril - unsure of why he had a high reading in the office, as his readings have been controlled here - may need to discontinue Lisinopril altogether Prediabetes - check an Ha1c DVT ppx - subq heparin FULL CODE
--- NOTE | 2017-06-25 15:08 | Neurology Consultation ---
Neurology Consultation Date of Consultation: June 25, 2017. Attending Physician: Delmi Kathleen DO Primary Care Physician: Omaira Iglesias M.D. Reason for Consultation: altered gait History of Present Illness Source: patient, family, spouse Ricardo is a 86 year old male PMH hypothyroidism, HTN, HLD, OA presented to ER with c/o weakness. He had some mild body aches and some cough productive of barnard /yellow sputum. He has not been eating or drinking well. 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 He is still working and driving. He was having generalized weakness and bilateral extremity weakness and unable to stand or walk. 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 He was seen by Dr Mays approx 9 years ago and had MRI showing some leukoencephalopathy and some atrophy and negative EMG. he was started on lisinopril approx. 10 days ago for an isolated hypertension. He did have a fall in 04/2016 slipped on ice and fell and since that time with intermittent headaches and posterior neck pain. He has received 2L of NS due to his renal function decreased. He has a bladder empting problem and urgency problem due to an enlarged prostrate. He was up and walking with PT earlier and is doing well. thinks he is close to baseline. denies CP, SOB, abdominal pain, weakness, numbness tingling, headache, N, V. + lower back pain, febrile on arrival now normal range. Past Medical/Surgical History Medical Problems: (1) Fever Status: Acute (2) Hypotension Status: Acute (3) Weakness Status: Acute Social History Smokeless Tobacco Use: No Alcohol Use: none Drug Use: none Marital Status: Housing Status: lives with family Occupation Status: employed Allergies Coded Allergies: Sulfa Drugs (Verified Allergy, Unknown, 06/24/17) Current Inpatient Medications Current Inpatient Medications Medications (Trade) Dose Ordered Sig/Cris Route Start Time Stop Time Status Last Admin Dose Admin Heparin Sodium (Porcine) (Heparin Sq 5000 Unit/0.5ml) 5,000 unit Q8 SQ 06/24/17 22:00 07/24/17 21:59 06/25/17 14:10 5,000 UNIT Acetaminophen (Tylenol Tab) 650 mg Q4H PRN PO 06/24/17 17:30 07/24/17 17:29 Al Hydrox/Mg Hydrox/Simethicone (Maalox Max Susp) 15 ml Q4H PRN PO 06/24/17 17:30 07/24/17 17:29 Magnesium Hydroxide (Milk Of Magnesia Susp) 30 ml Q12H PRN PO 06/24/17 17:30 07/24/17 17:29 Ondansetron HCl (Zofran Inj) 4 mg Q6H PRN IV 06/24/17 17:30 07/24/17 17:29 Nitroglycerin (Nitrostat Tab) 0.4 mg UD PRN SL 06/24/17 17:30 07/24/17 17:29 Aspirin (Ecotrin Tab) 81 mg QAM PO 06/25/17 09:00 07/25/17 08:59 06/25/17 07:55 81 MG Polyethylene (Miralax Powder Packet) 17 gm DAILY PRN PO 06/24/17 17:30 07/24/17 17:29 Multivitamins (Multivitamin Tab) 1 tab DAILY PO 06/25/17 09:00 07/25/17 08:59 06/25/17 07:55 1 TAB Miscellaneous (Iv Fluids Completed) 1 ea PRN PRN N/A 06/24/17 20:00 06/24/18 19:59 Ioversol (Optiray 320) 125 ml UD PRN IV 06/24/17 20:15 06/28/17 20:14 Sodium Chloride 1,000 ml @ 75 mls/hr [id number] IV 06/25/17 13:15 06/25/17 19:14 06/25/17 14:12 75 MLS/HR Physical Exam Vital Signs (Past 24 Hrs): Date Time Temp Pulse Resp B/P (MAP) Pulse Ox O2 Delivery O2 Flow Rate FiO2 06/25/17 12:00 Room Air 06/25/17 11:43 36.9 72 20 141/78 (99) 97 Room Air 06/25/17 08:00 Room Air 06/25/17 07:51 37.0 82 16 115/70 (85) 94 Room Air 06/25/17 04:00 Room Air 06/25/17 02:42 36.8 68 18 119/65 (83) 94 Room Air 06/25/17 00:00 37.2 72 16 117/71 (86) 95 Room Air 06/24/17 23:59 Room Air 06/24/17 20:29 36.8 85 16 129/74 95 Room Air 06/24/17 20:00 Room Air 06/24/17 18:24 74 138/75 93 06/24/17 16:48 82 16 102/60 94 Room Air 06/24/17 16:34 77 16 98/56 98 06/24/17 15:51 76 06/24/17 15:50 166 06/24/17 15:13 38.1 79 20 136/80 Room Air Physical Exam: Constitutional:appearance nourished, healthy and normal Ears, Nose, Mouth and Throat: mucous membranes moist, no injection and skin normal, eyes normal Cardiovascular: normal S-1 and S-2 and regular rate and rhythm Respiratory: clear to auscultation (CTA) and no rales, rhonchi or wheeze Musculoskeletal: no peripheral edema and good distal pulses Skin: no stigmata of neurocutaneous disease noted and normal and intact Eyes: extraocular muscles intact (EOMI) and pupils equal, round and reactive to light (PERRL), slight decrease in blink NEUROLOGIC EXAMINATION: Mental status: Alert and interactive Oriented to [facility], identifies all people in room, 2018 Oriented to person Speech fluent with no evidence of aphasia Cranial Nerves smile eye brow raise symmetric. Reflexes: Deep tendon reflexes were symmetrical and graded 2/5. LE decreased, plantar neutral Sensory: decreased sensation to vibration bilaterally to mid baptiste, GT proprioception intact bilaterally, intact to cool touch Coordination: finger to nose no bi pass, no resting tremor or cogwheeling or reaching tremor Gait/Stance: Posture normal. Gait normal: with steady with steps, base, turning, shuffling gait, uses arms of chair to rise Motor: Negative for pronator drift of out stretched arms with eyes closed. Strength: biceps triceps deltoids hand pole setter intrinsics 5/5 bilaterally, hip flex patellar/ plantar flex ext 5/5 bilaterally Laboratory Results Past 24 Hours: 06/25/17 05:12 06/25/17 05:12 Test 06/24/17 15:20 06/24/17 18:26 06/25/17 05:12 06/25/17 11:44 Urine Color YELLOW Urine Appearance CLEAR (CLEAR) Urine pH 7.0 (4.5-7.5) Urine Specific [employer] 1.018 (1.000-1.030) Urine Protein NEG (NEG) Urine Glucose (UA) NEG (NEG) Urine Ketones NEG (NEG) Urine Occult Blood NEG (NEG) Urine Nitrite NEG (NEG) Urine Bilirubin NEG (NEG) Urine Urobilinogen NEG (NEG) Urine Leukocyte Esterase NEG (NEG) Urine WBC (Auto) 1-5 /hpf (0-5) Urine RBC (Auto) 0-4 /hpf (0-4) Urine Hyaline Casts (Auto) 1-5 /lpf (0-5) Urine Epithelial Cells (Auto) 5-10 /lpf (0-5) Urine Bacteria (Auto) NEG (NEG) D-Dimer 710 ug/L FEU (0-500) Red Blood Count 4.09 M/uL (4.7-6.1) Mean Corpuscular Volume 89.0 fL (80-100) Mean Corpuscular Hemoglobin 32.3 pg (25-34) Mean Corpuscular Hemoglobin Concent 36.3 g/dl (32-36) RDW Standard Deviation 44.7 fL (36.4-46.3) RDW Coefficient of Variation 13.6 % (11.5-14.5) Mean Platelet Volume 9.0 fL (7.4-10.4) Anion Gap 5.0 mmol/L (3-11) Est Creatinine Clear Calc Drug Dose 51.7 ml/min Estimated GFR () 75.5 Estimated GFR (Non- 65.2 BUN/Creatinine Ratio 21.1 (10-20) Calcium Level 8.3 mg/dl (8.5-10.1) Triglycerides Level 70 mg/dl (0-150) Cholesterol Level 157 mg/dl (0-200) HDL Cholesterol 42 mg/dl LDL Cholesterol, Calculated 101 mg/dl VLDL Cholesterol, Calculated 14 mg/dl Cholesterol/HDL Ratio 3.7 Troponin I < 0.015 ng/ml (0-0.045) Imaging CT head- No acute intracranial abnormality. Mildly progressive chronic small vessel change compared to the prior study within the periventricular and deep white matter regions. CT chest- . No evidence of acute pulmonary embolism No evidence of focal pulmonary consolidation Aneurysmal dilatation of the ascending thoracic aorta ( 47 mm) Impression 86 year old male sudden onset of b/l lower ext weakness Plan 1. elevated d dimer on admission- CT chest negative for PE and DVT doppler negative 2. febrile on admission - r/o infectious source 3. fluid given - patient strength and walking is improved 4. CT head- no acute findings 5. PT/OT for discharge needs 6. hold lisinopril for now can restart if blood pressure becomes elevated 7. MRI lumbar spine may be helpful for evaluation of spinal stenosis but not urgent 8. discussion with that at some point he was evaluated for parkinson's and what sounds like NPH. He does not appear to have clear features of either of these. 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 both of which have been emerging for years based on the history taken today and in the setting of an 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
--- NOTE | 2017-06-25 16:15 | ECHOCARDIOGRAM REPORT ---
*NOTICE TO RECEIVING [employer] This information is strictly Confidential and protected under [place] law. [place] law prohibits you from making any further disclosure of this information unless further disclosure is expressly permitted by the written consent of the person to whom it pertains or is authorized by law. A general authorization for the release of medical or other information is not sufficient for this purpose. Hospital accepts no responsibility if the information is made available to any other person, INCLUDING THE PATIENT. Interpretation Summary * Name: ALEM OCASIO Study Date: 06/25/2017 07:03 AM BP: 119/65 mmHg * Patient Location: C.2E\S\E206\S\1 HR: 68 * : 1930 (M/d/yyyy) Gender: Male Height: 66 in * Age: 86 yrs Ethnicity: CA Weight: 176 lb * Ordering Physician: Pallavi Underwood * Referring Physician: Self, Referred * Performed By: Kvng Gonzalez RCS * * Reason For Study: SVT * BSA: 1.9 m2 * -- Conclusions -- * Normal LV chamber size with mild concentric LVH. * Normal LV systolic function, EF 60-65%. * No segmental left ventricular wall motion abnormalities are noted. * Grade I diastolic dysfunction. * Aortic valve sclerosis moderate, without significant aortic valvular stenosis. Mild aortic regurgitation. * Mild enlargement of the ascending aorta. Moderate enlargement of the aortic root. Procedure Details * A complete two-dimensional transthoracic echocardiogram was performed (2D, M-mode, Doppler and color flow Doppler). Left Ventricle * The left ventricle is normal in size. * There is mild concentric left ventricular hypertrophy. * Ejection Fraction = 60-65%. * Left ventricular systolic function is normal. * No segmental left ventricular wall motion abnormalities are noted. * The left ventricular wall motion is normal. Right Ventricle * The right ventricular cavity size is normal (basal dimension <4.2 cm in right ventricular apical 4-chamber view). * The right ventricular systolic function is normal as assessed by tricuspid annular plane systolic excursion (TAPSE) (normal >1.5 cm). Atria * The left atrium is mildly dilated. * Right atrial size is normal. * No ASD detected; PFO is not assessed. Mitral Valve * The mitral valve is normal in structure and function. Tricuspid Valve * The tricuspid valve is normal in structure and function. Aortic Valve * The aortic valve is trileaflet. * Aortic valve sclerosis moderate, without significant aortic valvular stenosis. * There is no significant aortic regurgitation. Pulmonic Valve * The pulmonary valve is not well seen, but the Doppler examination is normal without significant regurgitation or stenosis. Great Vessels * Moderate aortic root dilatation. * Mildly dilated ascending aorta. Pericardium/Pleural * There is no pericardial effusion. Left Ventricular Diastolic Function * Grade I diastolic dysfunction, (abnormal relaxation pattern). MMode 2D Measurements and Calculations IVSd 1.2 cm IVSs 1.4 cm LVIDd 3.2 cm LVIDs 1.8 cm LVPWd 1.2 cm LVPWs 1.4 cm IVS/LVPW 0.97 FS 41.8 % EDV(Teich) 39.7 ml ESV(Teich) 10.2 ml EF(Teich) 74.2 % EDV(cubed) 31.5 ml ESV(cubed) 6.2 ml EF(cubed) 80.3 % % IVS thick 20.0 % % LVPW thick 11.9 % LV mass(C)d 118.6 grams LV mass(C)dI 62.6 grams/m\S\2 LV mass(C)s 78.5 grams LV mass(C)sI 41.4 grams/m\S\2 SV(Teich) 29.4 ml SI(Teich) 15.5 ml/m\S\2 SV(cubed) 25.3 ml SI(cubed) 13.4 ml/m\S\2 Ao root diam 4.4 cm Ao root area 15.2 cm\S\2 ACS 1.6 cm LA dimension 4.0 cm asc Aorta Diam 4.1 cm LA/Ao 0.92 LVAd ap4 32.7 cm\S\2 LVLd ap4 8.3 cm EDV(MOD-sp4) 104.9 ml EDV(sp4-el) 109.8 ml LVAs ap4 17.9 cm\S\2 LVLs ap4 6.5 cm ESV(MOD-sp4) 43.0 ml ESV(sp4-el) 41.8 ml EF(MOD-sp4) 59.0 % EF(sp4-el) 61.9 % LVAd ap2 31.8 cm\S\2 LVLd ap2 8.6 cm EDV(MOD-sp2) 95.7 ml EDV(sp2-el) 100.4 ml LVAs ap2 18.4 cm\S\2 LVLs ap2 6.7 cm ESV(MOD-sp2) 43.4 ml ESV(sp2-el) 42.7 ml EF(MOD-sp2) 54.7 % EF(sp2-el) 57.4 % LVLd %diff 3.1 % EDV(MOD-bp) 101.8 ml LVLs %diff 2.9 % ESV(MOD-bp) 43.7 ml EF(MOD-bp) 57.0 % SV(MOD-sp4) 61.9 ml SI(MOD-sp4) 32.7 ml/m\S\2 SV(MOD-sp2) 52.3 ml SI(MOD-sp2) 27.6 ml/m\S\2 SV(MOD-bp) 58.1 ml SI(MOD-bp) 30.7 ml/m\S\2 SV(sp4-el) 68.0 ml SI(sp4-el) 35.9 ml/m\S\2 SV(sp2-el) 57.7 ml SI(sp2-el) 30.4 ml/m\S\2 Doppler Measurements and Calculations MV E max terese 55.2 cm/sec MV A max terese 103.5 cm/sec MV E/A 0.53 MV P1/2t max terese 62.8 cm/sec MV P1/2t 82.2 msec MVA(P1/2t) 2.7 cm\S\2 MV dec slope 223.6 cm/sec\S\2 MV dec time 0.34 sec Ao V2 max 128.4 cm/sec Ao max PG 6.6 mmHg Ao max PG (full) 2.7 mmHg AI max terese 444.9 cm/sec AI max PG 79.2 mmHg AI dec slope 286.2 cm/sec\S\2 AI P1/2t 455.3 msec LV V1 max PG 3.9 mmHg LV V1 max 98.1 cm/sec PA V2 max 71.6 cm/sec PA max PG 2.1 mmHg PI max etrese 155.3 cm/sec PI max PG 9.6 mmHg PI dec slope 141.3 cm/sec\S\2 PI P1/2t 321.9 msec TR max terese 235.3 cm/sec
[2017-06-25 16:39] VITALS: BP 109/64; PULSE 76; TEMP 36.6; O2SAT 95
[2017-06-25 20:01] VITALS: BP 112/67; PULSE 69; TEMP 36.6; O2SAT 93
[2017-06-26 00:06] VITALS: BP 131/70; PULSE 66; TEMP 36.5; O2SAT 96
[2017-06-26 03:42] VITALS: BP 123/67; PULSE 61; TEMP 36.6; O2SAT 97
[2017-06-26] MEDS: HEPARIN SOD 5000 UNIT/0.5 ML CARP SQ SCH ×3 (05:56→21:06)
[2017-06-26 06:00] LABS: HEMATOCRIT 37.3 % (42-52); HEMOGLOBIN 13.3 g/dL (14.0-18.0); MEAN CELL VOLUME 90.1 fL (80-100); MEAN CORPUSCULAR HEMOGLOBIN 32.1 pg (25-34); MEAN CORPUSCULAR HGB CONC 35.7 g/dl (32-36); MEAN PLATELET VOLUME 8.9 fL (7.4-10.4); PLATELET COUNT 153 K/uL (130-400); RED CELL DISTRIBUTION WIDTH CV 13.7 % (11.5-14.5); RED CELL DISTRIBUTION WIDTH SD 44.6 fL (36.4-46.3); WHITE BLOOD COUNT 5.34 K/uL (4.8-10.8)
[2017-06-26 06:33] LABS: CREATININE 0.94 mg/dl (0.60-1.40); POTASSIUM 4.1 mmol/L (3.5-5.1)
[2017-06-26 07:32] VITALS: BP 135/78; PULSE 65; TEMP 36.8; O2SAT 97
[2017-06-26] MEDS: MULTIVITAMIN TAB PO SCH (08:07)
[2017-06-26] MEDS: ASPIRIN 81 MG ECTAB PO SCH (08:07)
[2017-06-26] MEDS ORDERED: NURSING DECISION MEDICATION ORDER SCH (08:15)
[2017-06-26] MEDS ORDERED: SODIUM CHLORIDE 0.65% NA SOLN 45 ML (OCEAN) ONE (08:23)
[2017-06-26] MEDS ORDERED: SODIUM CHLORIDE 0.65% NA SOLN 45 ML (OCEAN) PRN (09:30)
[2017-06-26 11:17] VITALS: BP 122/78; PULSE 84; TEMP 36.5; O2SAT 96
--- NOTE | 2017-06-26 11:49 | Progress Note ---
Subjective Date of Service: June 26, 2017. Subjective Pt evaluation today including: conversation w/ patient, physical exam, lab review, review of studies, review of inpatient medication list Saw/examined the patient in room 206 +weakness and ambulatory dysfunction persists cough and upper respiratory symptoms improving Currently seated in a chair; tolerating PO intake this morning with no nausea/ vomiting/diarrhea Denies fevers/chills - afebrile overnight as per nursing Agreeable to plan for rehab Problem List Medical Problems: (1) Fever Status: Acute (2) Hypotension Status: Acute (3) Weakness Status: Acute Review of Systems Constitutional: No fever, No chills Respiratory: No cough (improving), No sputum Cardiac: No chest pain, No edema Abdomen: No pain, No nausea, No vomiting, No diarrhea Medications Current Inpatient Medications Medications (Trade) Dose Ordered Sig/Cris Route Start Time Stop Time Status Last Admin Dose Admin Heparin Sodium (Porcine) (Heparin Sq 5000 Unit/0.5ml) 5,000 unit Q8 SQ 06/24/17 22:00 07/24/17 21:59 06/26/17 05:56 5,000 UNIT Acetaminophen (Tylenol Tab) 650 mg Q4H PRN PO 06/24/17 17:30 07/24/17 17:29 Al Hydrox/Mg Hydrox/Simethicone (Maalox Max Susp) 15 ml Q4H PRN PO 06/24/17 17:30 07/24/17 17:29 Magnesium Hydroxide (Milk Of Magnesia Susp) 30 ml Q12H PRN PO 06/24/17 17:30 07/24/17 17:29 Ondansetron HCl (Zofran Inj) 4 mg Q6H PRN IV 06/24/17 17:30 07/24/17 17:29 Nitroglycerin (Nitrostat Tab) 0.4 mg UD PRN SL 06/24/17 17:30 07/24/17 17:29 Aspirin (Ecotrin Tab) 81 mg QAM PO 06/25/17 09:00 07/25/17 08:59 06/26/17 08:07 81 MG Polyethylene (Miralax Powder Packet) 17 gm DAILY PRN PO 06/24/17 17:30 07/24/17 17:29 Multivitamins (Multivitamin Tab) 1 tab DAILY PO 06/25/17 09:00 07/25/17 08:59 06/26/17 08:07 1 TAB Miscellaneous (Iv Fluids Completed) 1 ea PRN PRN N/A 06/24/17 20:00 06/24/18 19:59 Ioversol (Optiray 320) 125 ml UD PRN IV 06/24/17 20:15 06/28/17 20:14 Sodium Chloride ([place] Nasal [place]) 1 sprays PRN PRN NA 06/26/17 09:30 07/26/17 09:29 Objective Vital Signs Date Time Temp Pulse Resp B/P (MAP) Pulse Ox O2 Delivery O2 Flow Rate FiO2 06/26/17 11:17 36.5 84 18 122/78 (93) 96 06/26/17 08:00 Room Air 06/26/17 07:32 36.8 65 18 135/78 (97) 97 06/26/17 04:00 Room Air 06/26/17 03:42 36.6 61 20 123/67 (85) 97 Room Air 06/26/17 00:06 36.5 66 18 131/70 (90) 96 Room Air 06/26/17 00:00 Room Air 06/25/17 20:01 36.6 69 18 112/67 (82) 93 Room Air 06/25/17 20:00 Room Air 06/25/17 16:39 36.6 76 20 109/64 (79) 95 Room Air 06/25/17 16:00 Room Air 06/25/17 12:00 Room Air Physical Exam General Appearance: no apparent distress Respiratory/Chest: chest non-tender, lungs clear, normal breath sounds, no respiratory distress, no accessory muscle use Cardiovascular: regular rate, rhythm, no edema, no murmur Neurologic/Psychiatric: no motor/sensory deficits, alert, normal mood/affect Laboratory Results Last 24 Hours Test 06/25/17 17:27 06/26/17 05:31 Troponin I < 0.015 ng/ml White Blood Count 5.34 K/uL Red Blood Count 4.14 M/uL Hemoglobin 13.3 g/dL Hematocrit 37.3 % Mean Corpuscular Volume 90.1 fL Mean Corpuscular Hemoglobin 32.1 pg Mean Corpuscular Hemoglobin Concent 35.7 g/dl RDW Standard Deviation 44.6 fL RDW Coefficient of Variation 13.7 % Platelet Count 153 K/uL Mean Platelet Volume 8.9 fL Sodium Level 138 mmol/L Potassium Level 4.1 mmol/L Chloride Level 108 mmol/L Carbon Dioxide Level 24 mmol/L Anion Gap 6.0 mmol/L Blood Urea Nitrogen 19 mg/dl Creatinine 0.94 mg/dl Est Creatinine Clear Calc Drug Dose 56.3 ml/min Estimated GFR () 85.3 Estimated GFR (Non- 73.6 BUN/Creatinine Ratio 20.7 Random Glucose 97 mg/dl Estimated Average Glucose 126 mg/dl Hemoglobin A1c 6.0 % Calcium Level 8.0 mg/dl Magnesium Level 1.9 mg/dl Vitamin B12 Level 849 pg/mL Folate 18.89 ng/mL Assessment and Plan This is an 86 year old male with a past medical history of gait abnormality, HTN , HLD, hypothyroidism, prediabetes - presents with ambulatory dysfunction, generalized weakness Ambulatory Dysfunction Generalized Weakness 06/26 - continue PT/OT - plan to d/c to SNF/rehab 06/25 - patient states he's had trouble with ambulation for 18 years, since his knee surgeries - he's seen a few doctors including neurology in 2008. At that time, an MRI was done - showing microvascular changes and cerebral atrophy - so at this point, we'll add PT/OT to see how he does - consulted neurology in case we need another MRI or further testing Acute Kidney Injury - creatinine up to 1.3 on admission, with an elevated BUN:creat ratio - will give gentle IV hydration - monitor kidney function Episode of SVT - resolved HTN - will hold Lisinopril - unsure of why he had a high reading in the office, as his readings have been controlled here - may need to discontinue Lisinopril altogether Prediabetes - Ha1c = 6.0% DVT ppx - subq heparin FULL CODE
--- NOTE | 2017-06-26 14:03 | Neurology Progress Notes ---
Neurology Progress Note Date of Service June 26, 2017. Odalis Silva is a 86 year old male PMH hypothyroidism, HTN, HLD, OA presented to ER with c/o weakness. He had some mild body aches and some cough productive of barnard /yellow sputum. He has not been eating or drinking well. 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 He is still working and driving. He was having generalized weakness and bilateral extremity weakness and unable to stand or walk. 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 He was seen by Dr Mays approx 9 years ago and had MRI showing some leukoencephalopathy and some atrophy and negative EMG. he was started on lisinopril approx. 10 days ago for an isolated hypertension. He did have a fall in 04/2016 slipped on ice and fell and since that time with intermittent headaches and posterior neck pain. He has received 2L of NS due to his renal function decreased. He has a bladder empting problem and urgency problem due to an enlarged prostrate. He is up walking with PT and doing well. They had him walking up the steps and around the nurses station with a walker. He is concerned because his blood pressure went up with the walking. denies CP, SOB, abdominal pain, weakness, numbness tingling, headache, N, V. + lower back pain, febrile on arrival now normal range. Objective Date Time Temp Pulse Resp B/P (MAP) Pulse Ox O2 Delivery O2 Flow Rate FiO2 06/26/17 12:00 Room Air 06/26/17 11:17 36.5 84 18 122/78 (93) 96 06/26/17 08:00 Room Air 06/26/17 07:32 36.8 65 18 135/78 (97) 97 06/26/17 04:00 Room Air 06/26/17 03:42 36.6 61 20 123/67 (85) 97 Room Air 06/26/17 00:06 36.5 66 18 131/70 (90) 96 Room Air 06/26/17 00:00 Room Air 06/25/17 20:01 36.6 69 18 112/67 (82) 93 Room Air 06/25/17 20:00 Room Air 06/25/17 16:39 36.6 76 20 109/64 (79) 95 Room Air 06/25/17 16:00 Room Air Last 24 Hours Test 06/25/17 17:27 06/26/17 05:31 Troponin I < 0.015 ng/ml White Blood Count 5.34 K/uL Red Blood Count 4.14 M/uL Hemoglobin 13.3 g/dL Hematocrit 37.3 % Mean Corpuscular Volume 90.1 fL Mean Corpuscular Hemoglobin 32.1 pg Mean Corpuscular Hemoglobin Concent 35.7 g/dl RDW Standard Deviation 44.6 fL RDW Coefficient of Variation 13.7 % Platelet Count 153 K/uL Mean Platelet Volume 8.9 fL Sodium Level 138 mmol/L Potassium Level 4.1 mmol/L Chloride Level 108 mmol/L Carbon Dioxide Level 24 mmol/L Anion Gap 6.0 mmol/L Blood Urea Nitrogen 19 mg/dl Creatinine 0.94 mg/dl Est Creatinine Clear Calc Drug Dose 56.3 ml/min Estimated GFR () 85.3 Estimated GFR (Non- 73.6 BUN/Creatinine Ratio 20.7 Random Glucose 97 mg/dl Estimated Average Glucose 126 mg/dl Hemoglobin A1c 6.0 % Calcium Level 8.0 mg/dl Magnesium Level 1.9 mg/dl Vitamin B12 Level 849 pg/mL Folate 18.89 ng/mL Imaging: TTE Normal LV chamber size with mild concentric LVH. * Normal LV systolic function, EF 60-65%. * No segmental left ventricular wall motion abnormalities are noted. * Grade I diastolic dysfunction. * Aortic valve sclerosis moderate, without significant aortic valvular stenosis. Mild aortic regurgitation. * Mild enlargement of the ascending aorta. Moderate enlargement of the aortic root. NO ASD Exam: Gen: alert NAD lungs normal respiratory effort CV RRR strength hand retreader biceps triceps 5/5 bilaterally LE hip flex plantar flex ext 5 /5 gait with cane short tandem steps, slight balance issues on turns sensation decreased bilaterally vibration L>R to baptiste, GT proprioception intact Current Inpatient Medications Medications (Trade) Dose Ordered Sig/Cris Route Start Time Stop Time Status Last Admin Dose Admin Heparin Sodium (Porcine) (Heparin Sq 5000 Unit/0.5ml) 5,000 unit Q8 SQ 06/24/17 22:00 07/24/17 21:59 06/26/17 05:56 5,000 UNIT Acetaminophen (Tylenol Tab) 650 mg Q4H PRN PO 06/24/17 17:30 07/24/17 17:29 Al Hydrox/Mg Hydrox/Simethicone (Maalox Max Susp) 15 ml Q4H PRN PO 06/24/17 17:30 07/24/17 17:29 Magnesium Hydroxide (Milk Of Magnesia Susp) 30 ml Q12H PRN PO 06/24/17 17:30 07/24/17 17:29 Ondansetron HCl (Zofran Inj) 4 mg Q6H PRN IV 06/24/17 17:30 07/24/17 17:29 Nitroglycerin (Nitrostat Tab) 0.4 mg UD PRN SL 06/24/17 17:30 07/24/17 17:29 Aspirin (Ecotrin Tab) 81 mg QAM PO 06/25/17 09:00 07/25/17 08:59 06/26/17 08:07 81 MG Polyethylene (Miralax Powder Packet) 17 gm DAILY PRN PO 06/24/17 17:30 07/24/17 17:29 Multivitamins (Multivitamin Tab) 1 tab DAILY PO 06/25/17 09:00 07/25/17 08:59 06/26/17 08:07 1 TAB Miscellaneous (Iv Fluids Completed) 1 ea PRN PRN N/A 06/24/17 20:00 06/24/18 19:59 Ioversol (Optiray 320) 125 ml UD PRN IV 06/24/17 20:15 06/28/17 20:14 Sodium Chloride ([place] Nasal [place]) 1 sprays PRN PRN NA 06/26/17 09:30 07/26/17 09:29 Impression 86 year old male sudden onset of b/l lower ext weakness Plan 1. elevated d dimer on admission- CT chest negative for PE and DVT doppler negative 2. febrile on admission - r/o infectious source 3. fluid given - patient strength and walking is improved 4. CT head- no acute findings 5. PT/OT for discharge needs- likely outpatient home nursing assessment 6. hold lisinopril for now can restart if blood pressure becomes elevated- elevated after stair climb and walking with walker 7. MRI lumbar spine may be helpful for evaluation of spinal stenosis but not urgent 8. discussion with that at some point he was evaluated for parkinson's and what sounds like NPH. He does not appear to have clear features of either of these. 9. labs - still pending 10. ok to discharge from neurology stand point once medically stable follow up with neurology after discharge Dr Malik Mays, EMG I have seen and discussed above patient with Dr Malik Mays, neurology This man is essentially back to baseline today with a mildly apractic gait due to leukoencephalopathy and neuropathy needs only home care at this point with pt etc and we will see back for emg ncs labs pending for neuropathy workup and sign off for now on inpatient follow ups Malik mays MD
[2017-06-26 15:49] VITALS: BP 127/79; PULSE 89; TEMP 36.6; O2SAT 92
[2017-06-26 19:57] VITALS: BP 108/86; PULSE 80; TEMP 36.4; O2SAT 95
[2017-06-27] VITALS: BP 113/69; PULSE 65; TEMP 36.9; O2SAT 96
[2017-06-27] MEDS ORDERED: COUGH DROP (SUGAR FREE) LOZ 24 LOZ/1 BOX LOZ PRN (02:45)
[2017-06-27 02:55] VITALS: BP 122/75; PULSE 74; TEMP 36.6; O2SAT 95
[2017-06-27] MEDS: HEPARIN SOD 5000 UNIT/0.5 ML CARP SQ SCH (06:04)
[2017-06-27 06:39] LABS: CALCIUM 8.3 mg/dl (8.5-10.1); CREATININE 0.96 mg/dl (0.60-1.40); POTASSIUM 4.1 mmol/L (3.5-5.1)
[2017-06-27 07:34] VITALS: BP 135/80; PULSE 66; TEMP 36.7; O2SAT 95
[2017-06-27] MEDS: ASPIRIN 81 MG ECTAB PO SCH (07:57)
[2017-06-27] MEDS: MULTIVITAMIN TAB PO SCH (07:57)
--- NOTE | 2017-06-27 09:18 | Progress Note ---
Subjective Date of Service: June 27, 2017. Subjective Pt evaluation today including: conversation w/ patient, conversation w/ family , physical exam, lab review, review of studies, conversation w/ executive consultant, review of inpatient medication list Saw/examined the patient in room 206 He's doing well, worked really well with therapy yesterday he is feeling better today Problem List Medical Problems: (1) Fever Status: Acute (2) Hypotension Status: Acute (3) Weakness Status: Acute Review of Systems Constitutional: No fever, No chills, No weakness Respiratory: + cough, No sputum, No wheezing, No shortness of breath, No dyspnea on exertion, No dyspnea at rest, No hemoptysis Cardiac: No chest pain, No edema, No palpitations Abdomen: No pain, No nausea, No vomiting, No diarrhea Neurologic: + balance problems (improving) Medications Current Inpatient Medications Medications (Trade) Dose Ordered Sig/Cris Route Start Time Stop Time Status Last Admin Dose Admin Heparin Sodium (Porcine) (Heparin Sq 5000 Unit/0.5ml) 5,000 unit Q8 SQ 06/24/17 22:00 07/24/17 21:59 06/27/17 06:04 5,000 UNIT Acetaminophen (Tylenol Tab) 650 mg Q4H PRN PO 06/24/17 17:30 07/24/17 17:29 Al Hydrox/Mg Hydrox/Simethicone (Maalox Max Susp) 15 ml Q4H PRN PO 06/24/17 17:30 07/24/17 17:29 Magnesium Hydroxide (Milk Of Magnesia Susp) 30 ml Q12H PRN PO 06/24/17 17:30 07/24/17 17:29 Ondansetron HCl (Zofran Inj) 4 mg Q6H PRN IV 06/24/17 17:30 07/24/17 17:29 Nitroglycerin (Nitrostat Tab) 0.4 mg UD PRN SL 06/24/17 17:30 07/24/17 17:29 Aspirin (Ecotrin Tab) 81 mg QAM PO 06/25/17 09:00 07/25/17 08:59 06/27/17 07:57 81 MG Polyethylene (Miralax Powder Packet) 17 gm DAILY PRN PO 06/24/17 17:30 07/24/17 17:29 Multivitamins (Multivitamin Tab) 1 tab DAILY PO 06/25/17 09:00 07/25/17 08:59 06/27/17 07:57 1 TAB Miscellaneous (Iv Fluids Completed) 1 ea PRN PRN N/A 06/24/17 20:00 06/24/18 19:59 Ioversol (Optiray 320) 125 ml UD PRN IV 06/24/17 20:15 06/28/17 20:14 Sodium Chloride ([place] Nasal [place]) 1 sprays PRN PRN NA 06/26/17 09:30 07/26/17 09:29 Menthol (Nice Nichole) 1 nichole PRN PRN NICHOLE 06/27/17 02:45 07/27/17 02:44 06/27/17 06:02 1 NICHOLE Objective Vital Signs Date Time Temp Pulse Resp B/P (MAP) Pulse Ox O2 Delivery O2 Flow Rate FiO2 06/27/17 07:34 36.7 66 18 135/80 (98) 95 06/27/17 04:00 Room Air 06/27/17 02:55 36.6 74 17 122/75 (91) 95 Room Air 06/27/17 00:00 Room Air 06/27/17 00:00 36.9 65 18 113/69 (84) 96 Room Air 06/26/17 20:00 Room Air 06/26/17 19:57 36.4 80 20 108/86 (93) 95 Room Air 06/26/17 16:00 Room Air 06/26/17 15:49 36.6 89 18 127/79 (95) 92 Room Air 06/26/17 12:00 Room Air 06/26/17 11:17 36.5 84 18 122/78 (93) 96 Physical Exam General Appearance: WD/WN, no apparent distress Respiratory/Chest: chest non-tender, lungs clear, normal breath sounds, no respiratory distress, no accessory muscle use Cardiovascular: regular rate, rhythm, no edema, no gallop, no JVD, no murmur Abdomen: normal bowel sounds, non tender, soft Extremities: normal range of motion, non-tender, normal inspection, no pedal edema, no calf tenderness 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, no motor/sensory deficits, alert, normal mood/affect, oriented x 3 Skin: normal color Lymphatic: no adenopathy Laboratory Results Last 24 Hours Test 06/27/17 05:32 Sodium Level 137 mmol/L Potassium Level 4.1 mmol/L Chloride Level 106 mmol/L Carbon Dioxide Level 24 mmol/L Anion Gap 7.0 mmol/L Blood Urea Nitrogen 22 mg/dl Creatinine 0.96 mg/dl Est Creatinine Clear Calc Drug Dose 55.2 ml/min Estimated GFR () 83.2 Estimated GFR (Non- 71.8 BUN/Creatinine Ratio 23.1 Random Glucose 103 mg/dl Calcium Level 8.3 mg/dl Assessment and Plan This is an 86 year old male with a past medical history of gait abnormality, HTN , HLD, hypothyroidism, prediabetes - presents with ambulatory dysfunction, generalized weakness Ambulatory Dysfunction Generalized Weakness 06/27 - patient is doing well, worked well with PT - recommendation of home with home health at this time - will d/c home, outpatient neurology and PCP follow-up - will d/c Lisinopril 06/26 - continue PT/OT - plan to d/c to SNF/rehab 06/25 - patient states he's had trouble with ambulation for 18 years, since his knee surgeries - he's seen a few doctors including neurology in 2008. At that time, an MRI was done - showing microvascular changes and cerebral atrophy - so at this point, we'll add PT/OT to see how he does - consulted neurology in case we need another MRI or further testing Acute Kidney Injury - creatinine up to 1.3 on admission, with an elevated BUN:creat ratio - will give gentle IV hydration - monitor kidney function Episode of SVT - resolved HTN - will hold Lisinopril - unsure of why he had a high reading in the office, as his readings have been controlled here - may need to discontinue Lisinopril altogether Prediabetes - Ha1c = 6.0% DVT ppx - subq heparin FULL CODE
--- NOTE | 2017-06-27 09:23 | Discharge Instructions ---
Discharge Instructions Date of Service June 27, 2017. Admission Reason for Admission: Weakness, Hypotension,Svt Discharge Discharge Diagnosis / Problem: Weakness Discharge Goals Goal(s): Decrease discomfort, Improve function, Diagnostic testing, Therapeutic intervention Activity Recommendations Activity Limitations: resume your previous activity . Instructions / Follow-Up Instructions / Follow-Up Please follow-up with Dr. Iglesias on July 04 at 12:45PM * stop taking Lisinopril as your blood pressure has been stable without it; your primary care physician will recheck blood pressure in the office * Follow-up with Dr. Mays as an outpatient in 2-3 weeks for possible further testing regarding your neuropathy Current Hospital Diet Patient's current hospital diet: AHA Diet (Heart Healthy) Discharge Diet Recommended Diet: AHA Diet (Heart Healthy) Pending Studies Studies pending at discharge: no Laboratory Results Hemoglobin A1c Test 06/26/17 05:31 Range/Units Estimated Average Glucose 126 mg/dl Hemoglobin A1c 6.0 H 4.5-5.6 % Lipid Panel Test 06/25/17 05:12 Range/Units Triglycerides Level 70 0-150 mg/dl Cholesterol Level 157 0-200 mg/dl HDL Cholesterol 42 mg/dl Cholesterol/HDL Ratio 3.7 LDL Cholesterol, Calculated 101 mg/dl Medical Emergencies . Who to Call and When: Medical Emergencies: If at any time you feel your situation is an emergency, please call 911 immediately. . Non-Emergent Contact Non-Emergency issues call your: Primary Care Provider, Neurologist . . "Provider Documentation" section prepared by Delmi Kathleen. .
--- NOTE | 2017-06-27 09:25 | Discharge Summary ---
Discharge Summary Date of Service June 27, 2017. Discharge Summary Admission Date: June 24, 2017 at 17:32 Discharge Date: June 27, 2017 Discharge Disposition: Home with services Principal Diagnosis: Weakness/Ambulatory Dysfunction Episode of SVT HTN Prediabetes Medication Reconciliation Continued Medications: Fluticasone Propionate (Nasal) (Flonase Allergy Relief) 50 Mcg/Act Spr 2 SPRAYS ANNE-MARIE DAILY Multivitamin (Multivitamin) Tab 1 TAB PO DAILY, 0 Refills Discontinued Medications: Lisinopril (Zestril) 10 Mg Tab 10 MG PO DAILY, TAB Admission Information HPI (per Admitting provider): Pt is 86 y/o M with PMH hypothyroidism, HTN, HLD, OA presented to ER with c/o weakness. Patient states yesterday started with some mild body aches which were increased today. Past 2 days with cough productive of barnard/yellow sputum. Denies SOB/CP. Today has not been eating or drinking well. Reports history of chronic nasal congestion and uses Flonase however feels has had increased postnasal drip past 2 days. Today tactile fevers. Today with generalized weakness and bilateral extremity weakness and unable to stand or walk. Usually walks with the assistance of a cane. 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 His reports that normally has low BPs at home however last PCP visit had elevated blood pressure lisinopril was added 10 days ago. History chronic constipation and uses MiraLAX daily to have daily BMs. Patient states 04/2016 slipped on ice and fell and since that time with intermittent headaches and posterior neck pain. Denies any other recurrent falls. patient denies any dizziness or lightheadedness or syncopal episodes. Denies ill contacts. Denies recent travel, tick bites. Denies N/V, vision changes, CP, SOB, orthopnea, palpitations, sore throat, choking, otalgia, abdominal pain, paresthesias, extremity edema, rashes, urinary symptoms, weight loss. Physical Exam (per Admitting): General Appearance: WD/WN, no apparent distress Head: normocephalic, atraumatic Eyes: normal inspection, PERRL, EOMI, sclerae normal ENT: hearing grossly normal, pharynx normal, + pertinent finding (mucous membranes mildly dry) Neck: supple, no JVD, trachea midline, + pertinent finding (non-tender to palpation ) Respiratory/Chest: lungs clear, normal breath sounds, no respiratory distress Cardiovascular: regular rate, rhythm, normal peripheral pulses Abdomen/GI: normal bowel sounds, non tender, soft Back: no CVA tenderness Extremities/Musculoskelatal: normal inspection, no calf tenderness, normal capillary refill, no pedal edema, non-tender, + pertinent finding (Pt able to flex/extend bilateral hips, knees, ankles without tenderness. distal pulses intact bilaterally, +sensation to light touch intact bilaterally) Neurologic/Psych: alert, normal mood/affect, oriented x 3 Skin: normal color, warm/dry Hospital Course This is an 86 year old male with a past medical history of gait abnormality, HTN , HLD, hypothyroidism, prediabetes - presents with ambulatory dysfunction, generalized weakness Ambulatory Dysfunction Generalized Weakness 06/27 - patient is doing well, worked well with PT - recommendation of home with home health at this time - will d/c home, outpatient neurology and PCP follow-up - will d/c Lisinopril 06/26 - continue PT/OT - plan to d/c to SNF/rehab 06/25 - patient states he's had trouble with ambulation for 18 years, since his knee surgeries - he's seen a few doctors including neurology in 2008. At that time, an MRI was done - showing microvascular changes and cerebral atrophy - so at this point, we'll add PT/OT to see how he does - consulted neurology in case we need another MRI or further testing Acute Kidney Injury - creatinine up to 1.3 on admission, with an elevated BUN:creat ratio - will give gentle IV hydration - monitor kidney function Episode of SVT - resolved HTN - will hold Lisinopril - unsure of why he had a high reading in the office, as his readings have been controlled here - may need to discontinue Lisinopril altogether Prediabetes - Ha1c = 6.0% DVT ppx - subq heparin FULL CODE Total time spent on discharge = 40 minutes This includes examination of the patient, discharge planning, medication reconciliation, and communication with other providers. Discharge Instructions Please follow-up with Dr. Iglesias on July 04 at 12:45PM * stop taking Lisinopril as your blood pressure has been stable without it; your primary care physician will recheck blood pressure in the office * Follow-up with Dr. Mays as an outpatient in 2-3 weeks for possible further testing regarding your neuropathy
[2017-06-27 09:47] VITALS: BP 135/80; PULSE 66; TEMP 36.7; O2SAT 95
== END 2017-06-27 10:00 | disposition home health service (06) | DRG 206 ==
LOC: EDBD 12:54 → EDSEX 12:54 → C.EDB 12:56 → C.2E 17:32 → ENRESERV 17:47
PROVIDERS: ADMIT Hospitalist; ATTEND Family Medicine
DX: J98.8 Other specified respiratory disorders (principal); N17.9 Acute kidney failure, unspecified; R26.9 Unspecified abnormalities of gait and mobility; R53.1 Weakness; I10 Essential (primary) hypertension; E78.5 Hyperlipidemia, unspecified; E03.9 Hypothyroidism, unspecified; E86.0 Dehydration; R73.03 Prediabetes; Z79.899 Other long term (current) drug therapy; Z87.891 Personal history of nicotine dependence; Z88.2 Allergy status to sulfonamides